=== PATIENT | female | born 1995 | race Two or more races ===

== ENCOUNTER 2023-09-08 21:34 | Emergency (ER) | payer OTHER ==
[~2023-09-08] VITALS: Ht 170.2 cm; Wt 83.9 kg
[2023-09-08 23:33] LABS: ALBUMIN 3.9 gm/dL (3.4-5.0); ALKALINE PHOSPHATASE 64 U/L (50-136); ALT/SGPT 31 U/L (12-78); ANION GAP 11 (10.0-20.0); AST/SGOT 16 U/L (15-37); BILIRUBIN TOTAL 0.66 mg/dL (0.3-1.2); BLOOD UREA NITROGEN 13 mg/dL (7-18); BUN CREA RATIO 12 (7.0-25.0); CALCIUM 9.7 mg/dL (8.5-10.1); CARBON DIOXIDE 27 mEq/L (21-32); CHLORIDE 107 mmol/L (98-107); CREATININE SERUM 1.13 mg/dL (0.55-1.02); GLOBULINA 3.6 G/DL (2.4-3.5); GLUCOSE FASTING 135 mg/dL (65-100); HEMATOCRIT 39.3 % (36.0-45.00); HEMOGLOBIN 13.3 g/dL (12.0-15.00); MEAN CELL VOLUME 88.6 fL (80.00-100.00); MEAN CORPUSCULAR HGB CONC 33.9 g/dl (32.0-36.0); OSMOLALITY SERUM 285 MOSM/KG (275-295); PLATELET COUNT 346 K/uL (150-450); POTASSIUM 3.38 mEq/L (3.5-5.1); RED BLOOD COUNT 4.43 M/uL (4.00-6.00); RED CELL DISTRIBUTION WIDTH 13.3 % (11.5-14.5); SODIUM 142 mmol/L (136-145); TOTAL PROTEIN 7.5 gm/dL (6.4-8.2)
[2023-09-08 23:48] LABS: HCG QUANTITATIVE < 1 mUI/mL (1-3)
[2023-09-09 03:40] LABS: URINE BILIRRUBIN Negative (NEGATIVE); URINE BLOOD Large; URINE COLOR Yellow; URINE GLUCOSE Negative (NEGATIVE); URINE LEUKOCYTE Small; URINE NITRATE Negative; URINE PROTEIN 30 (NEGATIVE)
[2023-09-09 03:44] LABS: URINE BACTERIA 604.7 uL (0.0-1933); URINE EPITHELIAL CELLS 11.9 uL (0.0-38.8); URINE RBC 1273.8 uL (0.0-20.8); URINE WBC 78.5 uL (0.0-23.2)
[2023-09-09 04:01] LABS: URINE APPEARANCE CLOUDY
== END 2023-09-09 06:53 | disposition home or self-care (01) ==
LOC: ER 21:35
PROVIDERS: General Practice
DX: N20.1 Calculus of ureter (principal)
CPT/HCPCS: 36415; 74176; 96365; 99284; J1885; J2270; J2405; J3490